=== PATIENT | male | born 1970 | race Caucasian/White ===

== ENCOUNTER 2018-11-22 14:28 | Observation (INO) | payer MEDICARE, MEDICAID ==
--- NOTE | 2018-11-22 15:21 | RAD ---
EXAM: 3 views of the left foot HISTORY: Cut left big toe yesterday. Possible infection. COMPARISON: None FINDINGS: 3 views of the left foot shows no evidence of acute fracture or dislocation. There is absen ce of the distal tuft of the distal phalanx. Moderate great toe soft tissue swelling is seen. No degenerative changes are present. IMPRESSION: Absence of the tuft of the distal phalanx is concerning for osteomyelitis.
[2018-11-22] MEDS ORDERED: Bacitracin Zinc 1 Packet ONE (15:48)
[2018-11-22] MEDS ORDERED: Clindamycin/D5W 900 mg/50 ml Premix Bag ONE (16:00)
[2018-11-22 16:12] LABS: Hemoglobin A1c 5.2 % (4.0-6.0)
[2018-11-22] MEDS ORDERED: Cefepime 2 GM in Sodium Chloride 0.9% 100 ML IVPB SCH (16:15)
[2018-11-22] MEDS ORDERED: Morphine 4 MG/ML VIAL ONE (16:53)
[2018-11-22] MEDS ORDERED: Ondansetron PF 4 MG/2 ML Vial ONE ×2 (16:54→16:55)
[2018-11-22] MEDS ORDERED: traMADol HCl 50 MG TAB PO PRN (17:21)
[2018-11-22 17:27] LABS: #Basophils 0.1 thou/uL (0.0-0.2); #Eosinphils 0.1 thou/uL (0.0-0.7); #Lymphocytes 1.1 thou/uL (1.20-3.40); #Monocytes 0.6 thou/uL (0.11-0.59); #Neutrophils 4.6 thou/uL (1.40-6.50); %Basophils 0.8 % (0.0-1.0); %Eosinophils 1.4 % (0.0-10.0); %Lymphocytes 16.8 % (21.0-51.0); %Monocytes 8.9 % (0.0-10.0); %Neutrophils 72.1 % (42.0-75.0); Hemoglobin 13.5 g/dL (14.0-18.0); Mean Corpuscular HGB CONC 34.9 g/dL (32.0-36.0); Mean Corpuscular Hemoglobin 31.7 pg (27.0-31.0); Platelet Count 172 thou/uL (130-400); RBC Distribution Width 11.6 % (11.5-14.5); Red Blood Cell (RBC) Count 4.24 mill/uL (4.70-6.10); White Blood Cell (WBC) Count 6.3 thou/uL (4.8-10.8)
[2018-11-22 17:32] LABS: ALT (SGPT) 22 U/L (8-55); AST (SGOT) 23 U/L (5-34); Albumin 4.1 g/dL (3.5-5.0); Alkaline Phosphatase 51 U/L (40-150); Anion Gap 13 mmol/L (10-20); BUN (Urea Nitrogen) 9 mg/dL (8.9-20.6); Bilirubin, Total 0.6 mg/dL (0.2-1.2); Calc. Creatinine Clearance 0 mL/min (70-130); Calcium 8.9 mg/dL (7.8-10.44); Carbon Dioxide 25 mmol/L (22-29); Chloride 103 mmol/L (98-107); Estimated GFR-MDRD 73; Glucose 82 mg/dL (70-105); Potassium 4.3 mmol/L (3.5-5.1); Protein, Total 7.1 g/dL (6.0-8.3); Sodium 137 mmol/L (136-145)
--- NOTE | 2018-11-22 18:08 | HP ---
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 X-rays revealed changes of osteomyelitis. He has distal third of his toe which is granulating and infected. He states he injured it, the dog chewed on it, and this happened last 48 hours, but the wound looks much older. Range of foot looks good, very good palpable pulses. ALLERGIES: PENICILLIN. SOCIAL HISTORY: Tobacco, he uses tobacco. Alcohol, none. MEDICATIONS: None routinely. PAST SURGICAL HISTORY: Shoulder surgeries bilaterally, multiple back surgeries. PAST MEDICAL HISTORY: Noncontributory. REVIEW OF SYSTEMS: Noncontributory. PHYSICAL EXAMINATION: VITAL SIGNS: Blood pressure 128/74, respiratory rate 18, heart rate 74. HEAD, EARS, EYES, NOSE, AND THROAT: Unremarkable. LUNGS: Clear to auscultation. CARDIAC: Regular rate and rhythm without murmur or gallop. ABDOMEN: Soft and nontender. No masses. EXTREMITIES: Palpable femoral, popliteal, pedal pulses. Left great toe reveals granulation tissue distal third, absence of skin, probing extends down to the phalanx. ASSESSMENT AND PLAN: Osteomyelitis, left great toe. We will plan amputation of the distal toe tomorrow. He understands risks, benefits, and consents. Job ID: [id number]
[2018-11-22 18:50] VITALS: BMI 28.8
[2018-11-22] MEDS: traMADol HCl 50 MG TAB PO PRN (19:12)
[2018-11-22] MEDS ORDERED: Vancomycin HCl 1.5 GM in Sodium Chloride 0.9% 250 ML 300 ML IVPB SCH ×2 (19:30→21:00)
[2018-11-22] MEDS: Acetaminophen 500 MG TAB PO PRN (20:00)
[2018-11-22] MEDS: Ibuprofen 600 MG TAB PO PRN (20:00)
[2018-11-22] MEDS: Famotidine 20 MG TAB PO SCH (20:00)
[2018-11-22] MEDS: Enoxaparin Sodium 40 MG/0.4 ML SYRINGE SC SCH (20:08)
[2018-11-22] MEDS: Fentanyl 100 MCG/2 ML VIAL SLOW IVP PRN ×2 (21:07→23:18)
[2018-11-23] MEDS: Fentanyl 100 MCG/2 ML VIAL SLOW IVP PRN ×3 (04:51→11:32)
[2018-11-23] MEDS: Cefepime 2 GM in Sodium Chloride 0.9% 100 ML IVPB SCH ×2 (05:01→17:25)
[2018-11-23] MEDS: Acetaminophen 500 MG TAB PO PRN (05:02)
[2018-11-23] MEDS: Vancomycin HCl 1.75 GM in Sodium Chloride 0.9% 500 ML IVPB SCH ×2 (05:42→18:56)
[2018-11-23] MEDS: Ibuprofen 600 MG TAB PO PRN (06:49)
[2018-11-23] MEDS: traMADol HCl 50 MG TAB PO PRN (06:49)
[2018-11-23] MEDS: Sodium Chloride 0.9% 1,000 ML IV SCH ×2 (08:11→18:55)
[2018-11-23] MEDS: Famotidine 20 MG TAB PO SCH ×2 (08:14→21:22)
[2018-11-23] MEDS ORDERED: Famotidine/PF 20 mg/2ml Vial ONE (14:33)
[2018-11-23] MEDS ORDERED: Fentanyl 100 MCG/2 ML VIAL ONE ×4 (14:33→20:13)
[2018-11-23] MEDS ORDERED: Ondansetron PF 4 MG/2 ML Vial ONE (16:49)
[2018-11-23] MEDS ORDERED: PROPOFOL 200 MG/20 ML VIAL ONE (16:49)
[2018-11-23] MEDS ORDERED: Bupivacaine HCl 0.5%/Epinephrine 1:200,000/PF 30 ml Vial ONE (19:21)
[2018-11-23] MEDS ORDERED: Ketorolac Tromethamine 30 MG/ML VIAL IVP PRN (19:52)
[2018-11-23] MEDS ORDERED: Ondansetron HCl/PF 4 MG/2 ML Vial IVP PRN (19:52)
[2018-11-23] MEDS ORDERED: Promethazine HCl 25 MG/ML VIAL IM PRN (19:52)
[2018-11-23] MEDS ORDERED: Promethazine HCl 25 MG/ML VIAL SLOW IVP PRN (19:52)
[2018-11-23] MEDS ORDERED: Meperidine HCl/PF 25 MG/ML VIAL SLOW IVP PRN (19:52)
--- NOTE | 2018-11-23 19:59 | OP ---
DATE OF PROCEDURE: 11/23/2018 PREOPERATIVE DIAGNOSIS: Osteomyelitis, left great toe with open wound, nondiabetic. POSTOPERATIVE DIAGNOSIS: Osteomyelitis, left great toe with open wound, nondiabetic. PROCEDURE PERFORMED: Amputation of left great toe through the proximal phalanx with primary closure. ANESTHESIA: General. Digital block 0.5% Marcaine with epinephrine 10 mL. DESCRIPTION OF PROCEDURE: The patient was taken to the operating room, where under general anesthesia, his left lower extremity was prepared with Betadine and draped in routine fashion. Incision was made for a fishmouth incision carried down to the skin and subcutaneous tissue, amputating the left great toe through the mid phalanx. Toe submitted to Pathology. Phalanx was resected proximally with rongeurs. Hemostasis obtained with cautery. Connective tissue debrided sharply. The skin and subcutaneous tissue excised configured for closure. Subcutaneous tissue was approximated with 4-0 Monocryl, skin with 4-0 Prolene. Sterile dressing applied. The patient tolerated the procedure well. Job ID: [id number]
[2018-11-23] MEDS ORDERED: Ketorolac Tromethamine 30 MG/ML VIAL ONE (20:02)
[2018-11-23] MEDS: Enoxaparin Sodium 40 MG/0.4 ML SYRINGE SC SCH (21:24)
[2018-11-24] MEDS: Cefepime 2 GM in Sodium Chloride 0.9% 100 ML IVPB SCH (05:00)
[2018-11-24] MEDS: traMADol HCl 50 MG TAB PO PRN (05:01)
[2018-11-24 05:31] LABS: Vancomycin, Trough 16.6 ug/mL
[2018-11-24] MEDS: Vancomycin HCl 1.75 GM in Sodium Chloride 0.9% 500 ML IVPB SCH (06:05)
[2018-11-24] MEDS: Fentanyl 100 MCG/2 ML VIAL SLOW IVP PRN ×2 (06:41→09:01)
[2018-11-24] MEDS: Ibuprofen 600 MG TAB PO PRN ×2 (07:35→14:12)
[2018-11-24] MEDS: Famotidine 20 MG TAB PO SCH (09:00)
[2018-11-24] MEDS ORDERED: HYDROcodone/Acetaminophen 10/325 mg Tablet PO PRN ×3 (12:08→12:57)
[2018-11-24 16:13] VITALS: BP 116/80; TEMP 98.6
[2018-11-24] MEDS ORDERED: Ketorolac Tromethamine 30 MG/ML VIAL IVP PRN (17:12)
[2018-11-24] MEDS ORDERED: Sulfameth/Trimethoprim DS 800-160mg TAB PO SCH (21:00)
--- NOTE | 2018-11-25 02:39 | DIS ---
DATE OF ADMISSION: 11/22/2018 DATE OF DISCHARGE: 11/24/2018 DISCHARGE DIAGNOSIS: Open wound, left great toe with osteomyelitis, distal phalanx. PROCEDURES: X-rays of left foot demonstrating osteomyelitis, distal phalanx. Amputation of left great toe through the proximal phalanx with primary closure. The patient has chronic pain doctor in [place]. He has a pain pump with baclofen and Dilaudid. DISCHARGE MEDICATIONS: He is discharged home to resume his home medications; 1. Lyrica. 2. Bactrim DS p.o. b.i.d. 3. Levaquin 500 b.i.d. 4. Ibuprofen p.r.n. pain. 5. Hydrocodone 10/325 p.r.n. pain, #40, prescription given. The patient will follow up in my office in approximately 2 weeks for suture removal. Now, the patient has chronic pain doctor in [place]. He is concerned about his pain management. In the hospital, he required Secor 325. He was sent home with Levaquin 500 a day for 7 days. Bactrim DS one p.o. b.i.d. for 10 days. Cultures reveal Streptococcus and Staphylococcus from his wound. He is allergic to penicillin. HISTORY: A 48-year-old male who reports a 1 to 2 day history of toe problem. He states he injured it on some metal, then his dog chewed on it. He has a large open wound with osteomyelitis on x-ray. He was given intravenous antibiotics and taken to the operating room where he was amputated through the proximal phalanx and closed. He has been discharged home with the above. PLAN: Follow up in my office in 2 weeks for suture removal and he will take the dressing off in 24 to 48 hours, wash it daily with soap and water in the bath or shower, and apply antibiotic ointment and a Band-Aid on it. Job ID: [id number]
[2018-11-29] MEDS ORDERED: Ibuprofen 600 MG TAB PO PRN (23:59)
== END 2018-11-24 18:22 | disposition home or self-care (01) ==
LOC: ERS 14:28 → SURG B 16:49
PROVIDERS: ADMIT Specialist; ATTEND Specialist
PROC: 0QBR0ZZ Excision of Left Toe Phalanx, Open Approach (ICD-10-PCS; principal; 2018-11-23)
PROC: 0HTRXZZ Resection of Toe Nail, External Approach (ICD-10-PCS; 2018-11-23)
DX: M86.8X7 Other osteomyelitis, ankle and foot (principal); I96 Gangrene, not elsewhere classified; B95.4 Other streptococcus as the cause of diseases classified elsewhere; B95.62 Methicillin resistant Staphylococcus aureus infection as the cause of diseases classified elsewhere; F17.220 Nicotine dependence, chewing tobacco, uncomplicated; Z79.899 Other long term (current) drug therapy; Z88.0 Allergy status to penicillin; Z98.890 Other specified postprocedural states; W26.8XXA Contact with other sharp object(s), not elsewhere classified, initial encounter; W54.8XXA Other contact with dog, initial encounter
CPT/HCPCS: 28124; 73630; 80053; 80202; 82962; 83036; 85025; 85652; 86140; 87070; 87077; 87186; 87205; 88305; 88311; 96365; 96366 ×3; 96367 ×2; 96372 ×2; 96375 ×3; 96376 ×3; 99284; G0378 ×2; 36415; 36416; J0131; J0670; J0692; J1650; J1885; J2270; J2405; J2704; J3010; J3370; J3490; J7050; S0028

== ENCOUNTER 2019-06-09 22:03 | Emergency (ER) | payer MEDICAID, MEDICARE ==
--- NOTE | 2019-06-09 23:48 | RAD ---
EXAM: XR Shoulder Lt 2 View PROVIDED CLINICAL HISTORY: Pain status post injury COMPARISON: None FINDINGS: Comminuted, displaced fracture involves the left clavicle at the junction of the middle and distal th irds. The glenohumeral relationship appears normal. The visualized left lung field appears clear. No additional fracture is seen. The subacromial space appears preserved. IMPRESSION: Comminuted, displaced left clavicular fracture.
[2019-06-09] MEDS ORDERED: HYDROcodone/Acetaminophen 10/325 mg Tablet ONE (23:51)
== END 2019-06-10 00:05 | disposition home or self-care (01) ==
LOC: ERS 22:03
DX: S42.002A Fracture of unspecified part of left clavicle, initial encounter for closed fracture (principal); V43.32XA Unspecified car occupant injured in collision with other type car in nontraffic accident, initial encounter
CPT/HCPCS: L0120

== ENCOUNTER 2019-06-21 10:36 | Day surgery (SDC) | payer MEDICARE, MEDICAID ==
[2019-06-18 14:37] VITALS: BMI 28.8
[2019-06-21] MEDS ORDERED: Fentanyl 100 MCG/2 ML VIAL ONE ×2 (11:16→12:24)
[2019-06-21] MEDS ORDERED: Midazolam HCl 2 mg/2 ml Vial ONE (11:16)
[2019-06-21] MEDS ORDERED: Clindamycin/D5W 600 mg/50 ml Premix Bag ONE (12:21)
[2019-06-21] MEDS ORDERED: HYDROmorphone 2 MG/ML VIAL ONE (13:16)
[2019-06-21] MEDS ORDERED: Meperidine HCl/PF 25 MG/ML VIAL SLOW IVP PRN (14:40)
[2019-06-21] MEDS ORDERED: Promethazine HCl 25 MG/ML VIAL SLOW IVP PRN (14:40)
[2019-06-21] MEDS ORDERED: Ondansetron HCl/PF 4 MG/2 ML Vial IVP PRN (14:40)
[2019-06-21] MEDS ORDERED: Ketorolac Tromethamine 30 MG/ML VIAL IVP PRN (14:40)
[2019-06-21] MEDS ORDERED: PACU-Morphine 4MG/ML VIAL SLOW IVP PRN (14:40)
[2019-06-21] MEDS ORDERED: Morphine Sulfate 2 MG/ML SYRINGE SLOW IVP PRN (14:40)
[2019-06-21] MEDS ORDERED: HYDROmorphone 2 MG/ML VIAL SLOW IVP PRN (14:40)
[2019-06-21] MEDS ORDERED: Promethazine HCl 25 MG/ML VIAL IM PRN (14:40)
--- NOTE | 2019-06-21 14:49 | RAD ---
Intraoperative fluoroscopic imaging, right clavicle, 2 view INDICATION: Operative imaging. FINDINGS: Plate and screw fixation traverses the right clavicle, about fracture site. Osseous detail is limited on the provided views. IMPRESSION: Intraoperative fluoroscopic imaging for hardware placement of right clavicle. Transcribed Date/Time: 06/21/2019 2:52 PM
[2019-06-21] MEDS ORDERED: HYDROcodone/Acetaminophen 5/325 mg Tablet ONE (15:50)
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
== END 2019-06-21 16:00 | disposition home or self-care (01) ==
LOC: SDC 10:36
PROVIDERS: ATTEND Orthopaedic Surgery
PROC: 0PSB04Z Reposition Left Clavicle with Internal Fixation Device, Open Approach (ICD-10-PCS; principal; 2019-06-21)
DX: S42.002A Fracture of unspecified part of left clavicle, initial encounter for closed fracture (principal); V29.9XXA Motorcycle rider (driver) (passenger) injured in unspecified traffic accident, initial encounter; Z88.0 Allergy status to penicillin
CPT/HCPCS: 23515; 73000; 76000; C1713 ×2; J1170; J2250; J3010; J3490

== ENCOUNTER 2019-07-14 07:27 | Day surgery (SDC) | payer MEDICARE, MEDICAID ==
[2019-07-13 14:02] VITALS: BMI 29.1
[2019-07-14 07:55] VITALS: BP 139/94; TEMP 97.5
--- NOTE | 2019-07-14 09:29 | CT ---
CT myelogram of the lumbar spine: 07/14/2019 HISTORY: Right lower extremity radiculopathy TECHNIQUE: Following the intrathecal administration of iodinated contrast media, axial CT imaging obt ained at 2.5 mm intervals from the lower thoracic spine through the mid sacrum. Coronal and sagittal reformatted imaging obtained. FINDINGS: There is no anterolisthesis or retrolisthesis within the lumbar spine. The imaged nonosseous structures appear grossly unremarkable. Incompletely imaged catheter tubing associated with a pain pump is noted. The distal aspect of the ca theter tubing associated with the pain pump is within the anterior epidural space on the right at the axial level of the T12 vertebral body. This catheter tubing enters the central canal at the axial level of the L1-2 intervertebral disc space. Spinal stimulating leads are noted, only partially visualized on this exam. There is a transitional S1 vertebral body. T12-L1: Mild bilateral facet hypertrophy, right greater than left. No significant central canal or ne ural foraminal stenosis. L1-2: There is a central/right paracentral disc extrusion which leads to mild/moderate central canal stenosis and moderate/severe right lateral recess stenosis. This disc extrusion on the right at L1-2 measures approximately 1.7 cm in craniocaudal dimension and 8 mm in AP dimension. There is mild bilateral facet hypertrophy. There is mild/moderate neural foraminal stenosis on the right. No significant left neural foraminal stenosis. L2-3: Mild bilateral facet hypertrophy with associated mild neural foraminal stenosis. No significant central canal stenosis. L3-4: Mild bilateral facet hypertrophy. Minimal disc bulge. Mild bilateral ligamentum flavum hypertro phy. No significant central canal or neural foraminal stenosis. L4-5: Mild bilateral facet hypertrophy. The patient appears status post hemilaminectomy on the left. There is minimal disc bulge. There is no significant central canal stenosis. Mild bilateral neural foraminal stenosis, right greater than left. L5-S1: Bilateral facet hypertrophy noted with osteophyte encroachment on bilateral neural foramina. T here is associated mild/moderate bilateral neural foraminal stenosis. No central canal stenosis. The patient appears status post hemilaminectomy on the right. No lytic or blastic bone lesion. No acute osseous abnormality. IMPRESSION: Postoperative and degenerative changes are noted within the lumbar spine as described abo ve. The most significant finding is a central/right paracentral disc extrusion at L1-2 as detailed above.
--- NOTE | 2019-07-14 09:34 | RAD ---
Lumbar spine myelogram: 07/14/2019 COMPARISON: None HISTORY: Right lower extremity radiculopathy FINDINGS: Informed consent obtained prior to the procedure. [employer] imaging of the lumbar spine demonstrates a mild degree of upper lumbar spine levoscoliosis. The re is a transitional S1 vertebral body which is partially sacralized on the right. Spinal stimulating leads and a pain pump with associated catheter tubing noted. There is a focal area of discontinuity of the catheter tubing associated with the pain in the region of the interspinous ligament at the L1-2 level. Patient was placed on the fluoroscopic table in the oblique prone position and skin overlying the low er lumbar spine was prepped and draped in normal sterile fashion. At the L4 level, skin was anesthetized with 1% buffered lidocaine. With intermittent fluoroscopic guidance, a 22-gauge spinal needle is advanced into the thecal sac and removal of the stylet yields clear cerebrospinal fluid. Approximately 10 cc of Isovue contrast media was injected, outlining nerve roots of the cauda equina and opacifying the thecal sac. Needle w as removed. Patient tolerated the procedure well. Exposure data: 1.8 minutes of fluoroscopic time, 1044.8 mcg/sq m IMPRESSION: Successful lumbar spine myelogram. Focal area of discontinuity of catheter tubing associa alma with the patient's pain pump as described above.
[2019-07-14] MEDS ORDERED: Iopamidol-M 200 41% 20 ML VIAL ONE (14:24)
== END 2019-07-14 10:00 | disposition home or self-care (01) ==
LOC: RAD 07:27
PROC: B01B1ZZ Fluoroscopy of Spinal Cord using Low Osmolar Contrast (ICD-10-PCS; principal; 2019-07-14)
DX: M51.16 Intervertebral disc disorders with radiculopathy, lumbar region (principal); M48.061 Spinal stenosis, lumbar region without neurogenic claudication; F17.200 Nicotine dependence, unspecified, uncomplicated; F41.9 Anxiety disorder, unspecified; F32.9 Major depressive disorder, single episode, unspecified; G47.00 Insomnia, unspecified; Z79.899 Other long term (current) drug therapy; Z88.0 Allergy status to penicillin; Z96.89 Presence of other specified functional implants; Z98.890 Other specified postprocedural states
CPT/HCPCS: 62304; 72132; Q9966

== ENCOUNTER 2019-08-22 11:28 | Emergency (ER) | payer MEDICARE, MEDICAID ==
--- NOTE | 2019-08-22 12:57 | RAD ---
Exam: Left foot 3 views: HISTORY: Injury with pain and swelling COMPARISON: 11/22/2018 FINDINGS: Amputation changes at the level of the distal aspect of the proximal phalanx of the great toe with so me soft tissue swelling overlying this region. There is dorsal soft tissue swelling of the foot. IMPRESSION: Soft tissue swelling. Status post amputation changes of the great toe. No acute fracture or dislocati on.
[2019-08-22 13:06] LABS: #Basophils 0.1 thou/uL (0.0-0.2); #Eosinphils 0.2 thou/uL (0.0-0.7); #Lymphocytes 1.5 thou/uL (1.20-3.40); #Monocytes 0.6 thou/uL (0.11-0.59); %Basophils 1.2 % (0.0-1.0); %Eosinophils 1.9 % (0.0-10.0); %Lymphocytes 17.6 % (21.0-51.0); %Monocytes 6.6 % (0.0-10.0); %Neutrophils 72.7 % (42.0-75.0); Hemoglobin 12.8 g/dL (14.0-18.0); Mean Corpuscular HGB CONC 34.1 g/dL (32.0-36.0); Mean Corpuscular Volume 90.9 fL (78.0-98.0); Mean Platelet Volume 7.8 fL (7.4-10.4); Platelet Count 211 thou/uL (130-400); RBC Distribution Width 12.1 % (11.5-14.5); Red Blood Cell (RBC) Count 4.13 mill/uL (4.70-6.10); White Blood Cell (WBC) Count 8.3 thou/uL (4.8-10.8)
[2019-08-22 13:28] LABS: ALT (SGPT) 46 U/L (8-55); AST (SGOT) 48 U/L (5-34); Albumin 4.3 g/dL (3.5-5.0); Alkaline Phosphatase 67 U/L (40-110); Anion Gap 11 mmol/L (10-20); BUN (Urea Nitrogen) 14 mg/dL (8.9-20.6); Bilirubin, Total 0.7 mg/dL (0.2-1.2); Calc. Creatinine Clearance 0 mL/min (70-130); Calcium 8.7 mg/dL (7.8-10.44); Carbon Dioxide 28 mmol/L (22-29); Chloride 102 mmol/L (98-107); Estimated GFR-MDRD 77; Glucose 100 mg/dL (70-105); Potassium 4.2 mmol/L (3.5-5.1); Protein, Total 7.3 g/dL (6.0-8.3); Sodium 137 mmol/L (136-145)
[2019-08-22] MEDS ORDERED: Morphine 4 MG/ML VIAL ONE (14:20)
[2019-08-22] MEDS ORDERED: Ondansetron PF 4 MG/2 ML Vial ONE (14:21)
[2019-08-22] MEDS ORDERED: Ketorolac Tromethamine 30 MG/ML VIAL ONE (14:26)
--- NOTE | 2019-08-22 14:33 | CT ---
Exam: Left foot CT scan without IV contrast: HISTORY: Injury pain FINDINGS: Oblique minimally displaced fracture through the plantar base of the proximal second metatarsal. Ther e is some slight comminution associated with this. In addition there are minimally displaced comminuted fractures involving the dorsal aspect of the medial cuneiform bone with some dorsal displa cement of the major fragment. There is also a very slightly comminuted minimally displaced fracture off of the plantar lateral aspect of the medial cuneiform IMPRESSION: Lisfranc fractures as above. Consider follow-up nonemergent MRI which could assess the integrity of t he Lisfranc ligament.
== END 2019-08-22 15:02 | disposition home or self-care (01) ==
LOC: ERS 11:28
DX: S92.322A Displaced fracture of second metatarsal bone, left foot, initial encounter for closed fracture (principal); S92.242A Displaced fracture of medial cuneiform of left foot, initial encounter for closed fracture; F17.290 Nicotine dependence, other tobacco product, uncomplicated; W22.8XXA Striking against or struck by other objects, initial encounter
CPT/HCPCS: 28475; 80053; 85025; 96361; 96374; J1885; J2270; J2405

== ENCOUNTER 2019-08-30 11:09 | Day surgery (SDC) | payer MEDICARE, MEDICAID ==
[2019-08-27 09:45] VITALS: BMI 31.1
[~2019-08-30 11:09] MED LIST: Bupivacaine HCl 0.5%/Epinephrine 1:200,000/PF 30 ml Vial ONE; Ketorolac Tromethamine 30 MG/ML VIAL ONE; Lidocaine 1% PF 5 ML VIAL ONE; PROPOFOL 200 MG/20 ML VIAL ONE
[2019-08-30] MEDS ORDERED: Clindamycin/D5W 900 mg/50 ml Premix Bag ONE (11:18)
[2019-08-30] MEDS ORDERED: Levofloxacin 500 mg/D5W 100 ml Premix Bag ONE (11:48)
[2019-08-30] MEDS ORDERED: Midazolam HCl 2 mg/2 ml Vial ONE (11:55)
[2019-08-30] MEDS ORDERED: Lidocaine 1% (PF) 30 ML VIAL ONE (11:55)
[2019-08-30] MEDS ORDERED: Fentanyl 100 MCG/2 ML VIAL ONE ×4 (11:55→15:17)
[2019-08-30] MEDS ORDERED: HYDROmorphone 2 MG/ML VIAL ONE ×2 (13:20→13:39)
[2019-08-30] MEDS ORDERED: Ondansetron PF 4 MG/2 ML Vial IVP PRN (13:36)
[2019-08-30] MEDS ORDERED: Zolpidem Tartrate 5 MG TAB PO PRN (13:36)
[2019-08-30] MEDS ORDERED: Ropivacaine 0.2% 550 ML 550 ML NERVE BLCK SCH (13:36)
[2019-08-30] MEDS ORDERED: Promethazine HCl 25 MG/ML VIAL IM PRN (13:36)
[2019-08-30] MEDS ORDERED: traMADol HCl 50 MG TAB PO PRN ×2 (13:36)
[2019-08-30] MEDS ORDERED: Acetaminophen 325 MG TAB PO PRN (13:36)
[2019-08-30] MEDS ORDERED: HYDROcodone/Acetaminophen 10/325 mg Tablet PO PRN ×2 (13:36)
[2019-08-30] MEDS ORDERED: Fentanyl 100 MCG/2 ML VIAL IV PRN (13:37)
[2019-08-30] MEDS ORDERED: Morphine 4 MG/ML VIAL ONE (14:04)
[2019-08-30] MEDS ORDERED: HYDROmorphone 0.5 MG/0.5 ML SYRINGE ONE ×4 (14:16→14:49)
--- NOTE | 2019-08-30 14:30 | OP ---
DATE OF PROCEDURE: 08/30/2019 PROCEDURE PERFORMED: Open reduction and internal fixation of left foot Lisfranc fracture with instability. PREOPERATIVE DIAGNOSIS: Left foot Lisfranc fracture. POSTOPERATIVE DIAGNOSIS: Left foot Lisfranc fracture. COMPLICATIONS: None. ESTIMATED BLOOD LOSS: Minimal. SWING FRAME GRINDER OPERATOR: Araceli Gomes PA-C IMPLANTS: Two Synthes 3.5 mm screws were utilized. INDICATIONS: Mr. Ernst is a 49-year-old male, who has injured his left foot. He has a Lisfranc fracture with subluxation. The joint is widened. He is indicated for stabilization of his Lisfranc joint to restore rigidity of his arch and promote healing. Risks have been reviewed in detail. He elected to proceed with the operation. DESCRIPTION OF PROCEDURE: Mr. Ernst was identified in the preoperative holding area. His correct extremity was marked. He was carried to the operating room. He was positioned supine. The left lower extremity was prepped and draped in sterile fashion. He was given intravenous antibiotics. At this point, we made a dorsal incision over the foot. We dissected down through the subcutaneous tissues to the fascia, which was opened. We retracted the extensor tendons and protected the neurovascular structures. At this point, we encountered the patient's second metatarsal fracture as well as his Lisfranc joint. This was disrupted. The first metatarsal was unstable in relation to the medial cuneiform as well. We reduced the fracture. We then placed reduction clamps. At this point, we passed a 3.5 mm screw across from the medial cuneiform into the second metatarsal base. We then placed a 2nd screw from the first metatarsal into the medial cuneiform. We took x-ray images confirming that the screws were placed appropriately and there were no complications. At this point, we thoroughly irrigated with copious lavage. We then closed in layers. A sterile dressing and a boot were placed. The patient was taken to the recovery room in good condition. Job ID: [id number]
--- NOTE | 2019-08-30 17:58 | RAD ---
EXAM: LEFT FOOT THREE VIEWS: History: Status post ORIF left foot. FINDINGS: Two internal fixation screws stabilize the lisfranc joint region with improvement in position and ali gnment of the fracture of the proximal second metatarsal. POS: RRE
[2019-08-30] MEDS ORDERED: Ketorolac Tromethamine 30 MG/ML VIAL IVP SCH (18:00)
== END 2019-08-30 17:05 | disposition home or self-care (01) ==
LOC: SDC 11:09
PROVIDERS: ATTEND Orthopaedic Surgery
PROC: 0QSP04Z Reposition Left Metatarsal with Internal Fixation Device, Open Approach (ICD-10-PCS; principal; 2019-08-30)
PROC: 0SSL04Z Reposition Left Tarsometatarsal Joint with Internal Fixation Device, Open Approach (ICD-10-PCS; 2019-08-30)
DX: S93.325A Dislocation of tarsometatarsal joint of left foot, initial encounter (principal); S92.322A Displaced fracture of second metatarsal bone, left foot, initial encounter for closed fracture; S93.322A Subluxation of tarsometatarsal joint of left foot, initial encounter; M25.375 Other instability, left foot; F17.200 Nicotine dependence, unspecified, uncomplicated; Z79.899 Other long term (current) drug therapy; Z88.0 Allergy status to penicillin; W20.8XXA Other cause of strike by thrown, projected or falling object, initial encounter
CPT/HCPCS: 28485; 28615; 73630; 76000; A4306; C1713; J0670; J1170; J1885; J1956; J2001; J2250; J2270; J2704; J2795; J3010; J3490

== ENCOUNTER 2020-06-03 14:22 | Emergency (ER) | payer MEDICARE, MEDICAID ==
[2020-06-03] MEDS ORDERED: Iopamidol-370 76% 500 ML 1 ML ONE (14:30)
[2020-06-03] MEDS ORDERED: cefTRIAXone\\ROCEPHIN 2 GM VIAL ONE (15:06)
[2020-06-03] MEDS ORDERED: Dexamethasone 10 MG/ML VIAL ONE (15:06)
[2020-06-03 15:16] LABS: #Basophils 0.1 thou/uL (0.0-0.2); #Eosinphils 0.1 thou/uL (0.0-0.7); #Lymphocytes 1.4 thou/uL (1.20-3.40); #Monocytes 0.5 thou/uL (0.11-0.59); #Neutrophils 5.5 thou/uL (1.40-6.50); %Basophils 0.7 % (0.0-1.0); %Eosinophils 1.6 % (0.0-10.0); %Lymphocytes 18.1 % (21.0-51.0); %Monocytes 7.2 % (0.0-10.0); %Neutrophils 72.4 % (42.0-75.0); Hemoglobin 10.4 g/dL (14.0-18.0); Mean Corpuscular Hemoglobin 26.4 pg (27.0-31.0); Mean Platelet Volume 7.7 fL (7.4-10.4); Platelet Count 331 thou/uL (130-400); RBC Distribution Width 13.9 % (11.5-14.5); Red Blood Cell (RBC) Count 3.94 mill/uL (4.70-6.10); White Blood Cell (WBC) Count 7.6 thou/uL (4.8-10.8)
[2020-06-03 15:47] LABS: ALT (SGPT) 27 U/L (8-55); AST (SGOT) 43 U/L (5-34); Alkaline Phosphatase 57 U/L (40-110); Anion Gap 18 mmol/L (10-20); BUN (Urea Nitrogen) 13 mg/dL (8.9-20.6); Bilirubin, Total 0.7 mg/dL (0.2-1.2); Calc. Creatinine Clearance 0 mL/min (70-130); Carbon Dioxide 28 mmol/L (22-29); Chloride 96 mmol/L (98-107); Globulin 3.7 g/dL (2.4-3.5); Glucose 101 mg/dL (70-105); Potassium 3.7 mmol/L (3.5-5.1); Protein, Total 7.7 g/dL (6.0-8.3); Sodium 138 mmol/L (136-145)
[2020-06-03] MEDS ORDERED: Azithromycin 500 MG VIAL ONE (16:04)
[2020-06-03] MEDS ORDERED: Albuterol 200 PUFF (6.7GM INHALER) ONE (16:38)
[2020-06-03 17:18] LABS: SARS-CoV-2 NAA Rapid Test Not Detected (NotDetected)
--- NOTE | 2020-06-03 18:00 | CT ---
Exam: CT angiogram of the chest HISTORY: Tachycardia. Cough and shortness of breath. COMPARISON: None TECHNIQUE: CT angiogram of the chest is performed in the axial plane. Three-dimensional reformatted i mages are submitted for interpretation FINDINGS: Mediastinum: Nonenlarged mediastinal lymph nodes. No mass or hematoma. HEART: Normal size. No significant pericardial fluid. Aorta: No aneurysm or dissection Upper solid abdominal viscera: No abnormality enhancement. Trachea and central bronchi: Patent Pleural spaces: No effusion Lung parenchyma: Scattered predominantly peripheral groundglass opacities in the left upper lobe, sup erior segment left lower lobe anterior right lower lobe. Additional tree-in-bud opacities are identified. Correlate for atypical pneumonia including COVID 19 pneumonia. Pneumothorax: None Osseous structures: No lytic or blastic lesions Pulmonary arteries:Limited evaluation the pulmonary arterial system due to timing of contrast bolus. Adequate contrast opacification the level of the lobar arteries. No filling defect to suggest thromboembolism. Additional findings: There does appear to be mucosal and serosal thickening involvin g the distal thoracic esophagus with paraesophageal stranding. There are mild enlarged gastroesophageal lymph nodes. IMPRESSION: 1. Limited evaluation pulmonary arterial system due to timing of contrast bolus. No evidence of a pul monary artery embolism to the level of the lobar arteries 2. Esophagitis. 3. Lung parenchymal opacities compatible with atypical pneumonia including COVID 19 pneumonia. Correl ate clinically.
== END 2020-06-03 20:13 | disposition home or self-care (01) ==
LOC: ERS 14:22
DX: U07.1 COVID-19 (principal); F17.210 Nicotine dependence, cigarettes, uncomplicated
CPT/HCPCS: 71275; 80053; 83605; 84484; 85025; 85379; 87040; 93005; 96365; 96367; 96375; 99285; U0002; 36415; J0456; J0696; J1100; Q9967

== ENCOUNTER 2020-12-05 15:53 | Outpatient (CLI) | payer MEDICARE, MEDICAID | END 2020-12-05 15:54 | disposition home or self-care (01) | LOC: BICCT 15:53 | DX: M96.1 Postlaminectomy syndrome, not elsewhere classified (principal); M47.816 Spondylosis without myelopathy or radiculopathy, lumbar region; M47.817 Spondylosis without myelopathy or radiculopathy, lumbosacral region; Z98.890 Other specified postprocedural states | CPT/HCPCS: 72131 ==

== ENCOUNTER 2022-02-11 16:14 | Emergency (ER) | payer OTHER ==
[2022-02-11] MEDS ORDERED: levETIRAcetam 500 MG/5 ML VIAL ONE (16:42)
[2022-02-11] MEDS ORDERED: Ketorolac Tromethamine 30 MG/ML VIAL ONE (17:38)
[2022-02-11 18:47] LABS: #Eosinphils 0.1 thou/uL (0.0-0.7); #Monocytes 0.4 thou/uL (0.11-0.59); #Neutrophils 4.7 thou/uL (1.40-6.50); %Basophils 0.6 % (0.0-1.0); %Eosinophils 1.3 % (0.0-10.0); %Lymphocytes 16.3 % (21.0-51.0); %Monocytes 5.9 % (0.0-10.0); %Neutrophils 75.9 % (42.0-75.0); Hemoglobin 10.9 g/dL (14.0-18.0); Mean Corpuscular HGB CONC 32.3 g/dL (32.0-36.0); Mean Corpuscular Hemoglobin 28.2 pg (27.0-31.0); Mean Corpuscular Volume 87.1 fL (78.0-98.0); Mean Platelet Volume 7.2 fL (7.4-10.4); Platelet Count 280 thou/uL (130-400); RBC Distribution Width 14.4 % (11.5-14.5); Red Blood Cell (RBC) Count 3.85 mill/uL (4.70-6.10); White Blood Cell (WBC) Count 6.1 thou/uL (4.8-10.8)
[2022-02-11] MEDS ORDERED: HYDROcodone/Acetaminophen 5/325 mg Tablet ONE (18:55)
[2022-02-11 19:04] LABS: ALT (SGPT) 12 U/L (8-55); AST (SGOT) 19 U/L (5-34); Albumin 3.4 g/dL (3.5-5.0); Alkaline Phosphatase 45 U/L (40-110); Anion Gap 11 mmol/L (10-20); BUN (Urea Nitrogen) 13 mg/dL (8.9-20.6); Bilirubin, Total 0.2 mg/dL (0.2-1.2); CK (CPK) 259 U/L (30-200); Calc. Creatinine Clearance 0 mL/min (70-130); Calcium 8.2 mg/dL (7.8-10.44); Carbon Dioxide 26 mmol/L (22-29); Chloride 108 mmol/L (98-107); Estimated GFR 91; Globulin 2.8 g/dL (2.4-3.5); Glucose 84 mg/dL (70-105); Potassium 4.2 mmol/L (3.5-5.1); Protein, Total 6.2 g/dL (6.0-8.3); Sodium 141 mmol/L (136-145)
== END 2022-02-11 19:00 | disposition home or self-care (01) ==
LOC: ERS 16:14
DX: R56.9 Unspecified convulsions (principal); F17.210 Nicotine dependence, cigarettes, uncomplicated
CPT/HCPCS: 80053; 82550; 85025; 93005; 96374; 96375; 99285; J1953; 36415; J1885

== ENCOUNTER 2022-03-14 01:39 | Emergency (ER) | payer OTHER ==
[2022-03-14 04:01] LABS: #Lymphocytes 0.9 thou/uL (1.20-3.40); #Monocytes 0.4 thou/uL (0.11-0.59); #Neutrophils 8.7 thou/uL (1.40-6.50); %Basophils 0.4 % (0.0-1.0); %Eosinophils 0.3 % (0.0-10.0); %Lymphocytes 8.5 % (21.0-51.0); %Monocytes 4.3 % (0.0-10.0); %Neutrophils 86.5 % (42.0-75.0); Hemoglobin 14.5 g/dL (14.0-18.0); Mean Corpuscular HGB CONC 34.8 g/dL (32.0-36.0); Mean Corpuscular Hemoglobin 30.3 pg (27.0-31.0); Mean Corpuscular Volume 87.2 fL (78.0-98.0); Mean Platelet Volume 7.5 fL (7.4-10.4); Platelet Count 271 thou/uL (130-400); Red Blood Cell (RBC) Count 4.78 mill/uL (4.70-6.10)
[2022-03-14 04:13] LABS: ALT (SGPT) 15 U/L (8-55); AST (SGOT) 23 U/L (5-34); Acetaminophen Less than 10.0 mcg/mL (10.0-30.0); Albumin 4.7 g/dL (3.5-5.0); Alcohol Less than 10 mg/dL (Less than 10); Alkaline Phosphatase 63 U/L (40-110); Anion Gap 19 mmol/L (10-20); BUN (Urea Nitrogen) 8 mg/dL (8.9-20.6); Bilirubin, Total 1.1 mg/dL (0.2-1.2); Calc. Creatinine Clearance 0 mL/min (70-130); Calcium 9.4 mg/dL (7.8-10.44); Carbon Dioxide 22 mmol/L (22-29); Chloride 102 mmol/L (98-107); Estimated GFR 64; Globulin 3.3 g/dL (2.4-3.5); Glucose 110 mg/dL (70-105); Potassium 3.5 mmol/L (3.5-5.1); Salicylate Less than 8.0 mg/dL (15.0-30.0); Sodium 139 mmol/L (136-145)
== END 2022-03-14 04:40 ==
LOC: ERS 01:39
DX: Z02.89 Encounter for other administrative examinations (principal); R00.0 Tachycardia, unspecified; F17.210 Nicotine dependence, cigarettes, uncomplicated
CPT/HCPCS: 80053; 80307; 84484; 85025; 93005

== ENCOUNTER 2022-06-19 03:51 | Inpatient (IN) | payer OTHER, MEDICAID ==
[2022-06-19] MEDS ORDERED: Piperacillin/Tazobactam 4.5 GM VIAL ONE (05:24)
[2022-06-19] MEDS ORDERED: Fentanyl 100 MCG/2 ML VIAL ONE (05:26)
[2022-06-19] MEDS ORDERED: Acetaminophen 650 MG Suppository PR PRN (05:57)
[2022-06-19] MEDS ORDERED: Ondansetron PF 4 MG/2 ML Vial IVP PRN (05:57)
[2022-06-19] MEDS ORDERED: Acetaminophen 325 MG TAB PO PRN (05:57)
[2022-06-19] MEDS ORDERED: Ondansetron ODT 4 MG TAB PO PRN (05:57)
[2022-06-19 07:28] VITALS: BMI 38.6
[2022-06-19] MEDS ORDERED: diphenhydrAMINE 25 MG CAP PO PRN (10:00)
[2022-06-19] MEDS ORDERED: Promethazine HCl 25 MG/ML VIAL IM PRN (10:00)
[2022-06-19] MEDS ORDERED: Acetaminophen 500 MG TAB PO SCH (10:00)
[2022-06-19] MEDS ORDERED: diphenhydrAMINE 50 MG/ML VIAL IM/IV PRN (10:00)
[2022-06-19] MEDS ORDERED: HYDROmorphone/PF 10 MG in Sodium Chloride 0.9% 99 ML IVPB PRN (10:00)
[2022-06-19] MEDS ORDERED: Naloxone HCl 0.4 mg/ml Vial IV PRN (10:00)
[2022-06-19] MEDS ORDERED: HYDROcodone/Acetaminophen 10/325 mg Tablet ONE (11:20)
[2022-06-19] MEDS: HYDROcodone/Acetaminophen 10/325 mg Tablet PO PRN (11:22)
[2022-06-19] MEDS: fentaNYL 50 mcg/hour Patch TD SCH (11:23)
[2022-06-20] MEDS: Ondansetron PF 4 MG/2 ML Vial IVP PRN ×2 (04:32→15:24)
[2022-06-20 07:36] LABS: Anion Gap 17 mmol/L (10-20); BUN (Urea Nitrogen) 11 mg/dL (8.9-20.6); Calc. Creatinine Clearance 165 mL/min (70-130); Carbon Dioxide 20 mmol/L (22-29); Chloride 105 mmol/L (98-107); Estimated GFR 94; Glucose 89 mg/dL (70-105); Potassium 3.6 mmol/L (3.5-5.1); Sodium 138 mmol/L (136-145)
[2022-06-20] MEDS ORDERED: Vancomycin 1 GM in Premix Bag 1 BAG IVPB SCH (09:00)
[2022-06-20] MEDS ORDERED: VANCOMYCIN 1.75 GM/500 ML BAG 1.75 GM in Premix Bag 1 BAG IVPB SCH (09:00)
[2022-06-20] MEDS ORDERED: Cefepime 2 GM in Sodium Chloride 0.9% 100 ML IVPB SCH (09:00)
[2022-06-20 09:26] LABS: Band 1 % (5-11); Eosinophils 4 % (0-10); Hemoglobin 14.1 g/dL (14.0-18.0); Lymphocytes 49 % (21-51); MDiff Complete? YES; Mean Corpuscular HGB CONC 33.6 g/dL (32.0-36.0); Mean Corpuscular Hemoglobin 29.7 pg (27.0-31.0); Mean Corpuscular Volume 88.5 fl (78.0-98.0); Mean Platelet Volume 9.6 fL (7.4-10.4); Monocytes 6 % (0-10); Neutrophil 39 % (42-75); Platelet Clumps SLIGHT; Platelet Count 133 10x3/uL (130-400); Platelet Morphology Comment Appears Adequate; Polychromasia SLIGHT = 2-3 cells (100X) (0-2/hpf); RBC Distribution Width 14.1 % (11.5-14.5); Red Blood Cell (RBC) Count 4.76 mill/uL (4.70-6.10); White Blood Cell (WBC) Count 3.7 10x3/uL (4.8-10.8)
[2022-06-20] MEDS: HYDROcodone/Acetaminophen 10/325 mg Tablet PO PRN ×3 (12:30→20:14)
[2022-06-20] MEDS: Pregabalin 75 MG CAP PO SCH ×2 (12:31→19:46)
[2022-06-20] MEDS ORDERED: Methocarbamol 500 MG TAB PO SCH (15:00)
[2022-06-20] MEDS: tiZANidine HCl 4 MG TAB PO SCH ×3 (15:23→20:49)
[2022-06-20] MEDS ORDERED: levETIRAcetam 500 MG TAB PO SCH (15:30)
[2022-06-20] MEDS: Senokot S 8.6-50 MG TAB PO SCH (19:47)
[2022-06-20] MEDS: diphenhydrAMINE 25 MG CAP PO PRN (20:14)
[2022-06-20] MEDS: Morphine 4 MG/ML VIAL SLOW IVP PRN (20:49)
[2022-06-20] MEDS ORDERED: Morphine 4 MG/ML VIAL SLOW IVP SCH (22:30)
[2022-06-21] MEDS: Morphine 4 MG/ML VIAL SLOW IVP PRN ×3 (05:23→13:20)
[2022-06-21 06:23] LABS: #Basophils 0.1 thou/uL (0.0-0.2); #Eosinphils 0.1 thou/uL (0.0-0.7); #Lymphocytes 1.2 thou/uL (1.20-3.40); #Monocytes 0.3 thou/uL (0.11-0.59); #Neutrophils 1.1 thou/uL (1.40-6.50); %Basophils 2.3 % (0.0-1.0); %Lymphocytes 42.8 % (21.0-51.0); %Monocytes 10.2 % (0.0-10.0); %Neutrophils 39.7 % (42.0-75.0); Hemoglobin 13.3 g/dL (14.0-18.0); Mean Corpuscular HGB CONC 32.3 g/dL (32.0-36.0); Mean Corpuscular Hemoglobin 29.3 pg (27.0-31.0); Mean Corpuscular Volume 90.8 fl (78.0-98.0); Mean Platelet Volume 7.9 fL (7.4-10.4); Platelet Count 272 10x3/uL (130-400); RBC Distribution Width 13.7 % (11.5-14.5); Red Blood Cell (RBC) Count 4.52 mill/uL (4.70-6.10); White Blood Cell (WBC) Count 2.9 10x3/uL (4.8-10.8)
[2022-06-21 06:32] LABS: Anion Gap 12 mmol/L (10-20); BUN (Urea Nitrogen) 10 mg/dL (8.9-20.6); CK (CPK) 136 U/L (30-200); CRP (Inflammatory) Less than 0.50 mg/dL (= or < 0.5); Calc. Creatinine Clearance 174 mL/min (70-130); Calcium 8.7 mg/dL (7.8-10.44); Carbon Dioxide 24 mmol/L (22-29); Chloride 104 mmol/L (98-107); Estimated GFR 100; Glucose 87 mg/dL (70-105); Potassium 4.4 mmol/L (3.5-5.1); Sodium 136 mmol/L (136-145)
[2022-06-21] MEDS: tiZANidine HCl 4 MG TAB PO SCH ×3 (08:47→22:17)
[2022-06-21] MEDS: levETIRAcetam 500 MG TAB PO SCH ×2 (08:47→22:17)
[2022-06-21] MEDS: Pregabalin 75 MG CAP PO SCH ×3 (08:48→22:16)
[2022-06-21] MEDS: Ondansetron PF 4 MG/2 ML Vial IVP PRN (08:48)
[2022-06-21] MEDS: Senokot S 8.6-50 MG TAB PO SCH ×2 (17:46→22:17)
[2022-06-22] MEDS: Ondansetron PF 4 MG/2 ML Vial IVP PRN (06:19)
[2022-06-22] MEDS: HYDROcodone/Acetaminophen 10/325 mg Tablet PO PRN ×3 (06:19→14:57)
[2022-06-22] MEDS: levETIRAcetam 500 MG TAB PO SCH ×2 (09:05→20:41)
[2022-06-22] MEDS: tiZANidine HCl 4 MG TAB PO SCH ×3 (09:05→20:41)
[2022-06-22] MEDS: Senokot S 8.6-50 MG TAB PO SCH ×2 (09:05→20:41)
[2022-06-22] MEDS: Pregabalin 75 MG CAP PO SCH ×3 (09:06→20:41)
[2022-06-22] MEDS: fentaNYL 50 mcg/hour Patch TD SCH (11:33)
[2022-06-22] MEDS: Morphine 4 MG/ML VIAL SLOW IVP PRN (20:40)
[2022-06-22] MEDS: diphenhydrAMINE 25 MG CAP PO PRN (20:41)
[2022-06-22] MEDS: Zolpidem Tartrate 5 MG TAB PO PRN (20:41)
[2022-06-23] MEDS: HYDROcodone/Acetaminophen 10/325 mg Tablet PO PRN ×5 (05:13→23:29)
[2022-06-23] MEDS: Ondansetron PF 4 MG/2 ML Vial IVP PRN (05:13)
[2022-06-23] MEDS: Senokot S 8.6-50 MG TAB PO SCH ×2 (09:47→21:07)
[2022-06-23] MEDS: levETIRAcetam 500 MG TAB PO SCH ×2 (09:47→21:07)
[2022-06-23] MEDS: Pregabalin 75 MG CAP PO SCH ×3 (09:47→21:06)
[2022-06-23] MEDS: tiZANidine HCl 4 MG TAB PO SCH ×3 (09:47→21:07)
[2022-06-23] MEDS: Zolpidem Tartrate 5 MG TAB PO PRN (21:07)
[2022-06-23] MEDS: diphenhydrAMINE 25 MG CAP PO PRN (21:07)
[2022-06-24] MEDS: HYDROcodone/Acetaminophen 10/325 mg Tablet PO PRN ×2 (03:37→11:32)
[2022-06-24] MEDS: Ondansetron PF 4 MG/2 ML Vial IVP PRN (05:59)
[2022-06-24] MEDS: tiZANidine HCl 4 MG TAB PO SCH (08:28)
[2022-06-24] MEDS: Pregabalin 75 MG CAP PO SCH (08:29)
[2022-06-24] MEDS: levETIRAcetam 500 MG TAB PO SCH (08:31)
[2022-06-24] MEDS: Senokot S 8.6-50 MG TAB PO SCH (08:32)
[2022-06-24 12:48] VITALS: BP 121/81; TEMP 98.5
== END 2022-06-24 12:35 | disposition home or self-care (01) | DRG 603 ==
LOC: ERS 03:51 → SURG A 05:31 → ERHOLD 05:31 → EEVIPCON 05:31 → SURG A 16:17
PROVIDERS: ADMIT Student in an Organized Health Care Education/Training Program; ATTEND Hospitalist
DX: L03.311 Cellulitis of abdominal wall (principal); F11.20 Opioid dependence, uncomplicated; G40.909 Epilepsy, unspecified, not intractable, without status epilepticus; F20.9 Schizophrenia, unspecified; F31.9 Bipolar disorder, unspecified; F41.9 Anxiety disorder, unspecified; G89.4 Chronic pain syndrome; M79.672 Pain in left foot; Z79.899 Other long term (current) drug therapy; Z88.0 Allergy status to penicillin
CPT/HCPCS: 36415; 80048; 82550; 85025; 85652; 86140; 96374; 96375; J0692; J2270; J2405; J2543; J3010; J3370; J3490; Q0162

== ENCOUNTER 2022-06-30 12:07 | Emergency (ER) | payer OTHER, MEDICAID ==
[2022-06-30] MEDS ORDERED: Ketorolac Tromethamine 30 MG/ML VIAL ONE (13:34)
[2022-06-30] MEDS ORDERED: Prochlorperazine 10 MG/2 ML VIAL ONE (13:34)
[2022-06-30] MEDS ORDERED: Acetaminophen 500 MG TAB ONE (13:34)
== END 2022-06-30 15:20 | disposition home or self-care (01) ==
LOC: ERS 12:07
DX: R51.9 Headache, unspecified (principal); G89.29 Other chronic pain; M54.9 Dorsalgia, unspecified; S31.113D Laceration without foreign body of abdominal wall, right lower quadrant without penetration into peritoneal cavity, subsequent encounter; T81.9XXD Unspecified complication of procedure, subsequent encounter; F17.210 Nicotine dependence, cigarettes, uncomplicated
CPT/HCPCS: 96374; 96375; J0780; J1885

== ENCOUNTER 2022-07-07 01:43 | Emergency (ER) | payer OTHER, MEDICAID ==
[2022-07-07] MEDS ORDERED: HYDROcodone/Acetaminophen 5/325 mg Tablet ONE (10:23)
== END 2022-07-07 10:30 | disposition home or self-care (01) ==
LOC: ERS 01:43
DX: M54.50 Low back pain, unspecified (principal); F17.210 Nicotine dependence, cigarettes, uncomplicated
CPT/HCPCS: 72131

== ENCOUNTER 2023-08-28 13:04 | Outpatient (CLI) | payer OTHER, MEDICAID ==
[2023-08-28 15:03] LABS: #Basophils 0.1 10x3/uL (0.0-0.2); #Eosinphils 0.1 10x3/uL (0.0-0.5); #Monocytes 0.4 10x3/uL (0.0-1.1); #Neutrophils 2.6 10x3/uL (1.5-8.4); %Basophils 1.1 % (0.0-2.0); %Eosinophils 2.9 % (0.0-6.0); %Monocytes 9.9 % (0.0-10.0); %Neutrophils 57.9 % (40.0-75.0); Hematocrit 43.5 % (38.8-50.0); Hemoglobin 14.5 g/dL (13.5-17.5); Mean Corpuscular HGB CONC 33.3 g/dL (32.0-36.0); Mean Corpuscular Hemoglobin 30.4 pg (27.0-33.0); Mean Corpuscular Volume 91.2 fl (81.2-95.1); Mean Platelet Volume 10.6 fl (7.4-10.4); Platelet Count 279 10x3/uL (150-450); RBC Distribution Width 14.2 % (11.5-14.5); Red Blood Cell (RBC) Count 4.77 10x6/uL (4.32-5.72); White Blood Cell (WBC) Count 4.5 10x3/uL (3.5-10.5)
[2023-08-28 15:22] LABS: Anion Gap 15 mmol/L (10-20); BUN (Urea Nitrogen) 12 mg/dL (8.4-25.7); Calc. Creatinine Clearance 0 mL/min (70-130); Carbon Dioxide 25 mmol/L (22-29); Chloride 102 mmol/L (98-107); Estimated GFR 92; Glucose 90 mg/dL (70-105); Potassium 4.4 mmol/L (3.5-5.1); Sodium 138 mmol/L (136-145)
== END 2023-08-28 13:05 | disposition home or self-care (01) ==
LOC: LABBT 13:04
PROVIDERS: ATTEND Surgery
DX: Z01.812 Encounter for preprocedural laboratory examination (principal); K44.9 Diaphragmatic hernia without obstruction or gangrene
CPT/HCPCS: 80048; 85025

== ENCOUNTER → 2023-09-02 | Day surgery (SDC) | payer OTHER, MEDICAID ==
[2023-08-28 15:28] VITALS: BMI 29.2
[~2023-09-02] MED LIST changes: +Bupivacaine 0.25% HCL 30 ML VIAL ONE; -Bupivacaine HCl 0.5%/Epinephrine 1:200,000/PF 30 ml Vial ONE; +CEFAZOLIN 2 GM VIAL ONE; +Dexamethasone 20 MG/5 ML VIAL ONE; +EPINEPHrine 1 MG/ML VIAL ONE; +HYDROcodone/Acetaminophen 5/325 mg Tablet ONE; +HYDROmorphone 0.5 MG/0.5 ML SYRINGE ONE; -Ketorolac Tromethamine 30 MG/ML VIAL ONE; +Morphine 2 MG/ML VIAL ONE; +Ondansetron PF 4 MG/2 ML Vial ONE; +PHENYLEPHRINE-NS 100 MCG/ML 10 ML SYRINGE ONE; +PROPOFOL 20 ML ONE; -PROPOFOL 200 MG/20 ML VIAL ONE; +Propofol 500 MG/50 ML VIAL ONE; +Rocuronium Bromide 10 MG/ML (10ML VIAL) ONE; +SUGAMMADEX SODIUM 200 MG/2 ML VIAL ONE; +Sodium Chloride 0.9% 100 ML ONE; +ePHEDrine Sulfate 50 MG/10 ML VIAL ONE; +fentaNYL 50 mcg/mL 1 mL Vial ONE; +fentaNYL PF 100 MCG/2 ML SYRINGE ONE
== END ==
LOC: SDC 06:45
PROVIDERS: ATTEND Surgery
PROC: 0DV44ZZ Restriction of Esophagogastric Junction, Percutaneous Endoscopic Approach (ICD-10-PCS; principal; 2023-09-02)
PROC: 0BQT4ZZ Repair Diaphragm, Percutaneous Endoscopic Approach (ICD-10-PCS; 2023-09-02)
DX: K44.9 Diaphragmatic hernia without obstruction or gangrene (principal); K21.00 Gastro-esophageal reflux disease with esophagitis, without bleeding; M19.90 Unspecified osteoarthritis, unspecified site; G43.909 Migraine, unspecified, not intractable, without status migrainosus; F17.210 Nicotine dependence, cigarettes, uncomplicated; Z79.899 Other long term (current) drug therapy; Z79.891 Long term (current) use of opiate analgesic; Z88.0 Allergy status to penicillin
CPT/HCPCS: 43281; 93005; J0171; J3010; 93010; J0665; J1170; J2272; J2405; J2704; J3490